=== PATIENT | female | born 2005 | race Caucasian/White ===

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

== ENCOUNTER 2024-06-14 15:12 | Emergency (ER) | payer OTHER, SELFPAY ==
[2024-06-14 15:26] VITALS: BP 110/61; PULSE 74; RESP 16; TEMP 36.4; O2SAT 100
--- NOTE | 2024-06-14 15:50 | ED.URI ---
HPI - URI/Sore Throat General Chief Complaint: Upper Respiratory Infection Stated Complaint: strep/flu exp tired ,sore throat Time Seen by Provider: 06/14/24 16:11 Source: patient and RN notes reviewed Mode of arrival: ambulatory Limitations: no limitations History of Present Illness HPI Narrative: 19-year-old female presents concern for 2 day history of nasal congestion, drainage, nausea, fatigue gout feeling lightheaded, sore throat, painful swallowing. Reports she was exposed to strep at home. MD elicited complaint: cough and sore throat Related Data Home Medications ?Medication ?Instructions ?Recorded ?Confirmed ?Last Taken ?Type levetiracetam 500 mg tablet mg PO 01/22/22 Unknown History norgestimate 0.25 mg-ethinyl tablet 01/22/22 Unknown History estradiol 35 mcg tablet (Estarylla) Allergies Allergy/AdvReac Type Severity Reaction Status Date / Time No Known Allergies Allergy Mild Verified 06/14/24 15:26 Review of Systems Review of Systems: CONSTITUTIONAL: Reports malaise, fatigue. Denies chills, sweats, or fever. EYES: Denies visual changes, redness, or discharge. ENT: Reports rhinorrhea, congestion, sore throat. Denies sinus pain, otalgia CARDIOVASCULAR: Denies chest pain, palpitations, or edema. RESPIRATORY: Denies cough. Denies dyspnea. GASTROINTESTINAL: Denies abdominal pain, vomiting, diarrhea. Reports nausea SKIN: Denies rash or itching. MUSCULOSKELETAL: Denies myalgia. NEUROLOGIC: Denies headache. All systems reviewed & are unremarkable except as noted in HPI and below PMFSH Past Medical History Medical History (Updated 06/14/24 @ 16:17 by Shae Ortiz NP) Nasal fracture Seizures Surgical History Surgical History (Updated 01/22/22 @ 09:34 by Scarlet Gifford NP) S/P nasal surgery Social History Social History (Updated 01/22/22 @ 09:34 by Scarlet Gifford NP) Smoking status: Never smoker Alcohol intake: never Substance use: never Living arrangements: with family Occupation/Education: student Gender identity (if verbalized by the patient): Female Comments At time of signature, agree with nursing past medical, surgical, social and family history. There is no relevant family history pertinent to the presenting complaint Exam Narrative: GENERAL: Well-appearing, well-nourished, and in no acute distress. HEAD: Normocephalic EYES: PERRLA, conjunctivae clear ENT: Nares clear. Mucous membranes moist. TM pearly multani with dull light reflex bilaterally; no tragal tenderness. Oropharynx erythematous without lesions. Tonsils not enlarged and without exudate, no drooling, no hoarseness, no trismus, uvula midline. NECK: Supple. No lymphadenopathy CHEST: Clear to auscultation, breath sounds equal. No wheezing, rhonchi, rales, or stridor. No respiratory distress, speaks in full sentences. HEART: Regular rate and rhythm. No murmur heard. SKIN: Warm, dry, no rash. NEURO: Alert and oriented x3. PSYCH: Normal mood and affect Course Course Emergency Course: Patient is aware of diagnosis, understands and agrees to treatment plan. Anticipatory guidance given. Patient agrees to follow-up as directed and is aware of reasons to seek care at the emergency department. Portions of this record may have been created with voice recognition software Level of Care: Express Care Visit Vital Signs Vital signs: Vital Signs Temperature 97.6 F 06/14/24 15:26 Pulse Rate 74 06/14/24 15:26 Respiratory Rate 16 06/14/24 15:26 Blood Pressure 110/61 06/14/24 15:26 Pulse Oximetry 100 06/14/24 15:26 Oxygen Delivery Room Air 06/14/24 15:26 Temperature 97.6 F 06/14/24 15:26 Pulse Rate 74 06/14/24 15:26 Respiratory Rate 16 06/14/24 15:26 Blood Pressure 110/61 06/14/24 15:26 Pulse Oximetry 100 06/14/24 15:26 Oxygen Delivery Room Air 06/14/24 15:26 Reviewed. MDM - URI/Sore Throat MDM Narrative Medical decision making narrative: Differential diagnosis considered: Lobo virus, strep pharyngitis, allergic rhinitis, upper respiratory tract infection, sinusitis, rhinosinusitis, nasopharyngitis. viral pharyngitis, otitis media, otitis externa, pneumonia, bronchitis, viral cough syndrome, viral syndrome, and influenza. Exam findings show no acute concerns or changes; patient is non-toxic appearing and is in no distress. Patient is appropriate for outpatient treatment and follow-up. Lab Data Attestation: I reviewed the patient's lab results. Critical Care Time Critical Care Time Critical Care Time: No Discharge Plan Discharge Clinical Impression: Sore throat, Exposure to strep throat Patient Disposition: Home, Self-Care Condition: Stable Instructions: Antibiotic Form, Strep Throat (ED) Additional Instructions: -Take the medication as prescribed. Throw away the toothbrush after 24hours of antibiotic. -Eat and drink things that are easy to swallow, like tea or soup, or popsicles to suck on. -Oral rinses such as: Salt water gargles and/or may use topical anesthetic (eg. Chloraseptic spray) or lozenges to relieve dryness or throat pain). -Take Tylenol and ibuprofen as needed for pain and fever as directed. -Frequent hand washing or hand managed services consultant is one of the best ways to prevent spread of infection. -Follow up with primary care provider in 2-3 days if condition is not improving; or seek ER visit if you have trouble breathing, cannot drink enough fluids, have muffled voice, difficulty opening your mouth, or severe swelling. Patient Language: Samoan Prescriptions: New penicillin V potassium 500 mg tablet 500 mg PO Q12H 10 Days Qty: 20 0RF No Action levetiracetam 500 mg tablet PO norgestimate-ethinyl estradiol [Estarylla] 0.25-35 mg-mcg tablet Follow-up/Referrals: Justus Carrero MD [Primary Care Provider] - Stand Alone Forms: Work/School Release IP Time of Disposition: 16:18
[2024-06-14 16:07] LABS: EDSTREPNEGPOS1 Negative (Negative)
[2024-06-14 16:10] LABS: EDCOVIDSCREEN Negative (Negative); EDINFLUASCREEN Negative (Negative); EDINFLUBSCREEN Negative (Negative); EDSTREPNEGPOS1 Negative (Negative)
== END 2024-06-14 16:25 | disposition home or self-care (01) ==
PROVIDERS: Emergency Provider Nurse Practitioner; PCP Pediatrics
DX: J02.9 Acute pharyngitis, unspecified (principal); Z20.822 Contact with and (suspected) exposure to COVID-19
CPT/HCPCS: 87081; 87426; 87804; 87880; 99213; G0463

== ENCOUNTER 2024-08-16 14:23 | Outpatient (CLI) | payer OTHER, SELFPAY ==
--- OUTSIDE RECORDS SUMMARY | 2024-08-16 16:00 | XMS_ITS | Referral Summary ---
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) 07/12/2024 Telephone [facility] Adolescent Medicine [facility] [address] [place] [address] [place] [id number] Tammy Schulte RN medication request 06/02/2024 3:00 PM CORPORATE INVESTIGATOR Office Visit [facility] Phys[facility] [address] [place] [address] Jamee Powers MD Encounter for contraceptive management, unspecified type from Last 3 Months Allergies No known active allergies Medications rimegepant (Nurtec ODT) tablet,disinteg ratingIndicatio ns:Migraine Take 1 tablet (75 mg total) by mouth as needed (Migraine) 8 tablet 3 4 Active Additional Information Patient not taking.Reported on 08/04/2024 segesterone ac-ethin estradioL 0.15-0.013 mg/24 hour ring Insert into vagina as directed 1 each 5 Active spironolactone (ALDACTONE) 50 mg tablet TAKE 1 TABLET(50 MG) BY MOUTH DAILY 90 tablet 5 Active levETIRAcetam XR (KEPPRA XR) 500 mg 24 hr tablet TAKE 2 TABLETS TWICE A DAY 120 tablet 5 Active Active Problems Problem Noted Date Diagnosed Date Allergic rhinitis due to pollen 11/19/2022 Closed anterior dislocation of right humerus Closed fracture of nasal bones 01/08/2022 Overview (01/08/2022): Added automatically from request for surgery [id number] 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 female with IBS p/w LLQ pain for 24h associated with 1 bloody stool 07/01. Weekly intermittent cramping pains self resolve with diarrhea at baseline. Last week one episode of black formed stool. Xray in the ED with gaseous distension and small bowel wall thickening. Her presentation could be consistent with IBS flare, IBD, PUD, celiacs, lower GI bleed, or upper GI bleed. IBD is less likely given family history and normal CRP. PUD is less likely given that food intake does not affect her pain and PUD is not typically associated with diarrhea. Celiac is less likely given her negative workup in the past and lack of weight loss. Upper GI bleed is possible if it were brisk but less likely given the absence of melena. Lower GI bleed is less likely given that only a single episode of bleeding was observed. Plan - CMP AM - mIVF, NPO 0200 - tylenol, benadryl, heat packs - stool cx and fecal calprotectin, infections studies if diarrhea - oral PPI tomorrow - CTE vs MR enterography to evaluate small bowel Migraine without aura and wi thout status migrainosus, not intractable 06/01/2021 Near syncope 06/01/2021 Closed fracture of distal phalanx of index finge r 07/11/2016 Notalgia 01/03/2015 Fracture of metacarpal bone 01/03/2015 Fracture of metatarsal bone 06/27/2014 Vomiting 06/11/2011 Left lower quadrant pain 06/11/2011 Social History Tobacco Use Types Packs/Day Years Used Date Smoking Tobacco: Never Smokeless Tobacco: Never Tobacco Cessation:Counseling Given: Not Answered AUDIT-C Answer Date Recorded Q1: How often do you have a drink containing alcohol? Never 08/04/2024 Q2: How many drinks containi ng alcohol do you have on a typical day when you are drinking? Patient does not drink Q3: How often do you have si x or more drinks on one occasion? Never 08/04/2024 Comments No Sex and Gender Information Value Date Recorded Sex Assigned at Not on file Legal Sex Female 9:23 AM CORPORATE INVESTIGATOR Gender Identity Not on file Sexual Orientation Not on file Last Filed Vital Signs Vital Sign Reading Time Taken Comments Blood Pressure 104/69 08/04/2024 3:56 PM CDT Pulse 69 08/04/2024 3:56 PM CDT Temperature 36.2 C (97.2 F) 06/02/2024 2:57 PM CORPORATE INVESTIGATOR Respiratory Rate 18 03/23/2023 12:5 5 PM CORPORATE INVESTIGATOR Oxygen Saturation 100% 06/02/2024 2:57 PM CORPORATE INVESTIGATOR Inhaled Oxygen Concentration - - Weight 53.9 kg (118 lb 13.3 oz) 08/04/2024 3:56 PM CDT Height 166 cm (5' 5.35 ) 08/04/2024 3:56 PM CDT Body Mass Index 19.56 08/04/2024 3:56 PM CDT Plan of Treatment Not on file Procedures Procedure Name Priority Date/Time Associated Diagnosis Comments POCT HCG, URINE Routine 06/02/2024 4:03 PM CORPORATE INVESTIGATOR Encounter for contraceptive management, unspecified type from Last 3 Months Results * POCT hCG, urine (06/02/2024 4:03 PM CORPORATE INVESTIGATOR) HCG, ur, POC Negative Negative Lot Number [id number] QC Backgroud Clear Acceptable QC Control Line Acceptable Urine 06/02/2024 4:03 PM CORPORATE INVESTIGATOR Jamee Powers MD POINT OF CARE TEST OR DERABLES Final Result from Last 3 Months Insurance [facility] Advance Directives For more information, please contact: [phone] * Full Code (Latest Code Status on File) Date Activated Date Inactivated Comments 07/02/2021 9:58 PM 07/04/2021 10:42 PM Care Teams Awake Overnight Monitor Relationship Specialty Start Date End Date Justus Carrero MD [address] [place] [address] PCP - General Pediatrics 02/22/18
--- OUTSIDE RECORDS SUMMARY | 2024-08-16 16:00 | XMS_ITS | Clinical Summary ---
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) 07/12/2024 Telephone [facility] Adolescent Medicine [facility] 2[address] [place] [address] [place] [address] Tammy Schulte RN medication request 06/02/2024 3:00 PM CLOTH WORKER Office Visit [facility] Pediatrics [address] [place] [address] [address] [place] [address] Jamee Powers MD Encounter for contraceptive management, unspecified type from Last 3 Months Surgical History Surgery Date Site/Laterality Comments UPPER GASTROINTESTINAL ENDOSCOPY 07/04/2021 COLONOSCOPY 07/04/2021 NASAL FRACTURE SURGERY N/A ARTHROSCOPY SHOULDER W/ OR W /O OPEN LABRAL REPAIR 11/08/2022 - 12/08/2022 Right Medical History Medical History Date Comments Finger fracture Foot fracture Arm fracture Migraines IBS (irritable bowel syndrome) Seizures (HCC) jerks -notices more when overly tired Nasal fracture 12/24/2021 IBS (irritable bowel syndrome) Family History Medical History Relation Name Comments Cancer Maternal Grandmother breast, uterine Migraines Maternal Grandmother Asthma Mother Asthma - (Added by TW Conv) Cancer Mother breast Irritable bowel syndrome Mother Irr itable Bowel Syndrome - (Added by TW Conv) Ulcers Mother Peptic Ulcer - (Added by TW Conv) Migraines Other Migraine Headac he - (Added by TW Conv) Epilepsy Sister Relation Name Status Comments Maternal Grandmother Mother Other Sister Social History Tobacco Use Types Packs/Day Years [...] on file Legal Sex Female 9:23 AM CLOTH WORKER Gender Identity Not on file Sexual Orientation Not on file History Length Weight Head Circum Date/Time Gestation Age D/C Weight APGARs Delivery Method Feeding 2004 No complications during the , delivery or period. Obstetrics History Last Filed Vital Signs Vital Sign Reading Time Taken Comments Blood Pressure 104/69 08/04/2024 3:56 PM CDT Pulse 69 08/04/2024 3:56 PM CDT Temperature 36.2 C (97.2 F) 06/02/2024 2:57 PM CLOTH WORKER Respiratory Rate 18 03/23/2023 12:5 5 PM CLOTH WORKER Oxygen Saturation 100% 06/02/2024 2:57 PM CLOTH WORKER Inhaled Oxygen Concentration - - Weight 53.9 kg (118 lb 13.3 oz) 08/04/2024 3:56 PM CDT Height 166 cm (5' 5.35 ) 08/04/2024 3:56 PM CDT Body Mass Index 19.56 08/04/2024 3:56 PM CDT Plan of Treatment Health Maintenance Due Date Last Done Comments Depression Screening 2004 Hepatitis C Screening 2004 Meningococcal B Vaccine (1 o f 2 - Standard) 2020 Regular Well Visit/Exam 18-64 2022 Pneumococcal vaccine <65 (1 of 2 - PCV) 2023 06/09/2005, 2004, 2004, Additional history exists DTaP/Tdap/Td Vaccine (7 - Td or Tdap) 01/01/2025 01/01/2015, 10/23/2009, 12/16/2005, Additional history exists Influenza Vaccine (Season Ended) 2025 03/25/2006, 04/22/2005, 03/21/2005 Hepatitis B Screening Completed 06/09/2005 , 2004, 2004 Varicella Vaccines Completed 10/23/2009, 06/09/2005 HPV Vaccines Completed 06/29/2017, 12/17/2016 Meningococcal Vaccine Completed 10/24/2020, 016 Procedures Procedure Name Priority Date/Time Associated Diagnosis Comments POCT HCG, URINE Routine 06/02/2024 4:03 PM CLOTH WORKER Encounter for contraceptive management, unspecified type from Last 3 Months Results * POCT hCG, urine (06/02/2024 4:03 PM CLOTH WORKER) HCG, ur, POC Negative Negative Lot Number [id number] QC Backgroud Clear Acceptable QC Control Line Acceptable Urine 06/02/2024 4:03 PM CLOTH WORKER Jamee Powers MD POINT OF CARE TEST OR DERABLES Final Result from Last 3 Months Insurance [facility] [employer] [facility] Address: [place] [address] [facility] [facility] Address: [place] [address] [facility] [facility] [employer] Address: [address] [place] [address] [facility] [employer] [facility]/PPO Address: [place] [address] [facility] [employer] [facility] [employer] Address: [address] [place] [address] [place] [address] Advance Directives For more information, please contact: [phone] * Full Code (Latest Code Status on File) Date Activated Date Inactivated Comments 07/02/2021 9:58 PM 07/04/2021 10:42 PM Care Teams Director Packaging Relationship Specialty Start Date End Date Justus Carrero MD [address] [place] [address] PCP - General Pediatrics 02/22/18
--- OUTSIDE RECORDS SUMMARY | 2024-08-16 16:00 | XMS_ITS | Clinical Summary ---
Author Organization [facility] Address [facility] [place] [address] Care Team Providers Care Dog Handler Name Role Phone Justus Carrero MD Primary Care Provider [phone] Allergies No known active allergies Medications levETIRAcetam ER (KEPPRA XR) 500 MG 24 hr tablet Take 2 tablets (1,000 mg total) by mouth 2 (two) times daily. 4 Active ANNOVERA 0.013-0.15 MG/24HR RING INSERT 1 RING VAGINALLY DIRECTED Active fluticasone propionate (FLONASE) 50 MCG/ACT nasal spray 1 spray by Each Nostril route daily as needed. 1 g 5 Active guaiFENesin ER (MUCINEX) 600 MG 12 hr tablet Take 1 tablet (600 mg total) by mouth 2 (two) times daily. 28 tablet 5 Active Encounters Date Type Department Care Team Description 06/25/2024 12:22 PM ANGLESMITH - 06/25/2024 2:10 PM ANGLESMITH Hospital Encounter [facility] [address] [place] [id number] Daniel Ray MD Sore Throat Discharge Disposition: Home or Self Care (Routine Discharge) 06/25/2024 Travel from Last 3 Months Social History Tobacco Use Types Packs/Day Years Used Date Smoking Tobacco: Never Smokeless Tobacco: Never Tobacco Cessation:Counseling Given: Not Answered Comments No Sex and Gender Information Value Date Recorded Sex Assigned at Female 06/25/2024 12:04 PM ANGLESMITH Legal Sex Female 12:03 PM ANGLESMITH Gender Identity Not on file Sexual Orientation Not on file Last Filed Vital Signs Vital Sign Reading Time Taken Comments Blood Pressure 107/65 06/25/2024 12:26 PM ANGLESMITH Pulse 84 06/25/2024 12:26 PM ANGLESMITH Temperature 36.7 C (98 F) 06/25/2024 12:26 PM ANGLESMITH Respiratory Rate 18 06/25/2024 12:26 PM ANGLESMITH Oxygen Saturation 98% 06/25/2024 12:26 PM ANGLESMITH Inhaled Oxygen Concentration - - Weight 54.4 kg (120 lb) 06/25/2024 12:26 PM ANGLESMITH Height 165.1 cm (5' 5 ) 06/25/2024 12:26 PM ANGLESMITH Body Mass Index 19.97 06/25/2024 12:26 PM ANGLESMITH Plan of Treatment Health Maintenance Due Date Last Done Comments Annual Physical 2007 Meningococcal B Vaccine (1 of 2 - Standard) 2020 Hepatitis C 2022 COVID-19 Vaccine ( season) 2024 DTaP, Tdap and Td Vaccines (7 - Td or Tdap) 01/01/2025 01/01/2015, 10/23/2009, 12/16/2005, Additional history exists Hepatitis B Vaccines Completed 06/09/2005, 2004, 2004 Pneumococcal Vaccine: Pediatrics (0 to 5 Years) and At-Risk Patients (6 to 64 Years) Aged Out 06/09/2005, 2004, 2004, Additional history exists No longer eligible based on patient's age to complete this topic HPV Vaccines Completed 06/29/2017, 12/17/2016 Meningococcal Vaccine Completed 10/24/2020, 016 RSV Immunizations Under 20 Months Aged Out No longer eligible based on patient's age to complete this topic Procedures Procedure Name Priority Date/Time Associated Diagnosis Comments STREP A RAPID STAT 06/25/2024 1:49 PM ANGLESMITH from Last 3 Months Results * STREP A RAPID (06/25/2024 1:49 PM ANGLESMITH) SPECIMEN TYPE THROAT 06/25/2024 1:[address] [facility] RAPID STREP TEST NEGATIVE NEGATIVE 06/25/2024 1:56 PM ANGLESMITH [facility] STRUCTURE OF ANTERIOR PORTION OF NECK / Unknown 06/25/2024 1:49 PM ANGLESMITH us Daniel Ray MD MICROBIOLOGY - GENERAL ORDER KATIE Final Result [facility] [address] [place] [address], from Last 3 Months Insurance Care Teams Dog Handler Relationship Specialty Start Date End Date Justus Carrero MD [address] [place] [address] PCP - General PEDIATRICS 06/25/24
--- OUTSIDE RECORDS SUMMARY | 2024-08-16 16:00 | XMS_ITS | Clinical Summary ---
Author Organization [facility] Address [address] [place] [address] Care Team Providers Care Mail Carriers Supervisor Name Role Phone Justus Carrero MD Primary Care Provider Source Comments [facility],non-owned Affiliates and Associated Physician Practices is amultiple site organization consisting of ambulatory clinics and hospital sitesin [place], [place], [place] and [place]. This disclosure is being madepursuant to the Care Everywhere program and may not contain all information available regarding this patient. Last updated 18.[facility] Tactile Allergies No known active allergies Medications * Be aware that medications may not be up to date on this document. Alwaysverify current medications with the patient. Medication Sig Dispensed Refills Start Date End Date Status levETIRAcetam CR 24hr (Keppra XR) 500 MG tablet 2 (two) tablets 2 times daily pt took at 0659, 11/25/22 10/31/2022 Active Estarylla 0.25-35 MG-MCG tablet Take 1 (one) tablet by mouth once daily 08/21/2021 Active nortriptyline (Pamelor) 10 MG capsule Take 1 (one) capsule by mouth at bedtime 10/31/2022 Active rimegepant (Nurtec) 75 MG tablet Take 75 mg by mouth as needed for Migraine 10/31/2022 Active Ubrelvy 100 MG tablet Take 1 (one) tablet by mouth once as needed for Migraine 10/25/2022 Active Other Take 1 Each by mouth once daily Migravent Gummy Active docusate sodium (Colace) 100 MG capsule Take 1 (one) capsule by mouth once daily 7 capsule 11/25/2022 Active Additional Information Patient not taking.Reported on 12/10/2022 HYDROcodone-acetami nophen ([place]) 5-325 MG tabletIndications:C losed anterior dislocation of right humerus, subsequent encounter,S/P arthroscopy of shoulder Take 1 (one) tablet to 2 (two) tablets by mouth every 4 hours as needed for Pain 20 tablet 11/25/2022 Active Additional Information Patient not taking.Reported on 12/10/2022 Active Problems Problem Noted Date Diagnosed Date Allergic rhinitis due to pollen 11/19/2022 11/19/2022 Closed anterior dislocation of right humerus Closed fracture of nasal bones 01/08/2022 0 11/19/2022 Overview (11/19/2022): Added automatically from request for surgery [id number] Juvenile myoclonic epilepsy 11/12/202111/08 IBS (irritable bowel syndrome) 07/03/2021 0 11/19/2022 Abdominal pain 07/03/2021 11/19/2022 Overview (11/19/2022): Last Assessment & Plan: Ioana Orr is a 16 y.o. female [...] wi thout status migrainosus, not intractable 06/01/2021 11/19/2022 Near syncope 06/01/2021 11/19/2022 Closed fracture of distal phalanx of index finge r 07/11/2016 11/19/2022 Fracture of metacarpal bone 01/03/201511/08 Notalgia 01/03/2015 11/19/2022 Fracture of metatarsal bone 06/27/201411/08 Left lower quadrant pain 06/11/2011 023 Vomiting 06/11/2011 11/19/2022 Immunizations Name Administration Dates Next Due DTAP, HISTORIC VACCINE 10/23/2009,2005,2004,10/22,2004 DTaP VACCINE IM (6wk-6yrs) 12/16/2005,,2004,08/16 HEP A PED/ADULT VACCINE 02/11/2007,06/08/2006 HEP A PEDS 2 DOSE 06/08/2006 HEP B VACCINE 06/09/2005,2004,2004 HEP B VACCINE, PED/ADOL 06/09/2005,2004, HIB BOOSTER 06/09/2005,2004,2004 HIB VACCINE 06/09/2005,2004,2004 Human Papilloma Virus Nineva lent Vaccine 06/29/2017,12/17/2016 INFLUENZA VACCINE 03/25/2006,04/22/2005,03/21/20 05 MENINGOCOCCAL ACWY (MCV4P) VAC IM 10/24/2020 MENINGOCOCCAL ACWY MENVEO 11/28/2015 MMR 06/09/2005 MMR VACCINE 10/23/2009,06/09/2005 PNEUMOCOCCAL CONJ, PEDS 06/09/2005,12/17,2004,08/16 PNEUMOCOCCAL PPV VACCINE 06/09/2005,0801/2005,2004,08/16 POLIO IPV 03/21/2005,2004,2004 POLIO,HISTORIC VACCINE 10/23/2009,2004,2004,08/16 TDAP, HISTORIC VACCINE 01/01/2015 VARICELLA 10/23/2009,06/09/2005,06/09/2005 Social History Tobacco Use Types Packs/Day Years Used Date Smoking Tobacco: Never Smokeless Tobacco: Never Tobacco Cessation:Counseling Given: Not Answered Alcohol Use Standard Drinks/Week Comments Never 0 (1 standard drink = 0.6 oz pur e alcohol) AUDIT-C Answer Date Recorded Q1: How often do you have a drink containing alcohol? Never 11/25/2022 Q2: How many drinks containi ng alcohol do you have on a typical day when you are drinking? Patient does not drink Q3: How often do you have si x or more drinks on one occasion? Never 11/25/2022 Sex and Gender Information Value Date Recorded Sex Assigned at Not on file Gender Identity Not on file Sexual Orientation Not on file Last Filed Vital Signs Vital Sign Reading Time Taken Comments Blood Pressure 102/67 11/25/2022 10:05 AM CDT Pulse 61 11/25/2022 10:05 AM CDT Temperature 36.2 C (97.1 F) 11/25/2022 10:05 AM CDT Respiratory Rate 8 11/25/2022 10:05 AM CDT Oxygen Saturation 96% 11/25/2022 10:10 AM CDT Inhaled Oxygen Concentration - - Weight 59.9 kg (132 lb) 12/10/2022 9:17 AM CDT Height 165.1 cm (5' 5 ) 11/25/2022 6:24 AM CDT Body Mass Index 21.97 11/25/2022 6:24 AM CDT Plan of Treatment Health Maintenance Due Date Last Done Comments HIV SCREENING 2019 CHLAMYDIA/GONORRHEA SCREENING 2020 MENINGOCOCCAL (Group B) VACC INE SHARED DECISION-MAKING (1 of 2 - Standard) 2020 HEPATITIS C SCREENING 06/03/2022 COVID-19 VACCINE ( - 2023-2 5 season) 2024 DEPRESSION SCREENING 05/11/2024 DTAP/TDAP/TD VACCINES (7 - T d or Tdap) 01/01/2025 01/01/2015, 10/23/2009, 12/16/2005, Additional history exists INFLUENZA VACCINE (Season Ended) 2025 03/25/2006, 04/22/2005, 03/21/2005 ZOSTER VACCINE (1 of 2) 2054 HEPATITIS B VACCINE Completed 06/09/2005, 06/09/2005, 2004, Additional history exists HIB VACCINE Completed 06/09/2005, 05/13, 2004, Additional history exists PNEUMOCOCCAL VACCINE Completed 06/09/2005, 06/09/2005, 2004, Additional history exists HPV VACCINE Completed 06/29/2017, 12/17/2016 MENINGOCOCCAL GROUPS A/C/Y/W VACCINE Completed 10/24/2020, 11/28/2015 Medical Devices Implanted Type Area Adhesive Bandage Making Operator Device Identifier Shelf Expiration Date Model / Serial / Lot Menno Sut Healix Transtend Othcrd 3.4mm Implanted:Qty: 1 on 11/25/2022 by Mohit Dorsey MD at [facility] Right: Shoulder [employer] 01/08/2025 [id number] / / [id number] Menno Sut Healix Transtend Othcrd 3.4mm Implanted:Qty: 1 on 11/25/2022 by Mohit Dorsey MD at [facility] Right: Shoulder [employer] 06/10/2025 [id number] / / [id number] Menno Sut Gryphon Proknot Bcrl Rapide Implanted:Qty: 1 on 11/25/2022 by Mohit Dorsey MD at [facility] Right: Shoulder [employer] 09/07/2024 [id number] / / [id number] Menno Sut Gryphon Proknot Bcrl Rapide Implanted:Qty: 1 on 11/25/2022 by Mohit Dorsey MD at [facility] Right: Shoulder [employer] 08/08/2025 [id number] / / [id number] Menno Sut Gryphon Proknot Bcrl Rapide Implanted:Qty: 1 on 11/25/2022 by Mohit Dorsey MD at [facility] Right: Shoulder [employer] 09/07/2024 [id number] / / [id number] Care Teams Mail Carriers Supervisor Relationship Specialty Start Date End Date Justus Carrero MD [address] [place] [address] PCP - General Pediatrics 11/25/22
[2024-08-16 18:56] LABS: Add Urine Microscopic? YES; Appearance Urine Turbid (Clear); Bacteria Urine 4+ /hpf; Bilirubin Urine Negative (Negative); Blood Urine 2+ (Negative); Color Urine Dark Yellow (Yellow); Glucose Urine UA Negative (Negative); Ketones Urine Negative (Negative); Leukocyte Esterase Ur 3+ LEU/UL (Negative); Mucus Urine Present /lpf; Need Manual Microscopic Reviewed; Nitrate Urine Positive (Negative); Protein Urine 2+ mg/dL (Negative); Specific Grav Ur 1.021 (1.001-1.035); Squamous Epithelial Cell Urine None Seen /hpf (Few); WBC Urine >100 /hpf (0-3); pH Urine 6.5 (5.0-9.0)
[2024-08-16 19:06] LABS: Basophils Absolute Auto 0.1 K/mm3 (0.0-0.1); Basophils Percent Auto 0.6 % (0.2-1.2); Eosinophils Absolute Auto 0.1 K/mm3 (0-0.3); Eosinophils Percent Auto 0.9 % (0-4.4); Hematocrit 36.1 % (37.0-47.0); Hemoglobin 12.1 g/dL (12.0-15.0); Immature Granulocyte Absolute 0.02 K/mm3 (0.00-0.031); Immature Granulocyte Percent A 0.3 % (0-0.5); Lymphocytes Absolute Auto 2.92 K/mm3 (0.9-3.2); Lymphocytes Percent Auto 36.6 % (18.3-44.2); Mean Corpuscular HGB Conc 33.5 g/dl (32-36); Mean Corpuscular Volume 89.4 fl (80-100); Mean Platelet Volume 10.9 fl (7.4-10.4); Monocytes Absolute Auto 0.6 K/mm3 (0.1-0.6); Monocytes Percent Auto 7.3 % (2.6-8.5); Neutrophils Absolute Auto 4.3 K/mm3 (1.3-6.7); Neutrophils Percent Auto 54.3 % (45.5-73.1); Platelet Count Result 282 k/mm3 (150-375); Red Blood Count 4.04 M/mm3 (4.2-5.4); Red Cell Distribution Width 11.5 % (11.5-14.5)
[2024-08-16 20:12] LABS: Alanine Aminotransferase 17 U/L (6-35); Albumin Level 4.6 g/dL (3.5-5.1); Alkaline Phosphatase 63 U/L (38-126); Anion Gap 12 mmol/L (4-12); Aspartate Amino Transferase 62 U/L (14-36); Bilirubin,Total 0.3 mg/dL (0.2-1.3); Blood Urea Nitrogen 11 mg/dL (7-17); Calcium 9.3 mg/dL (8.4-10.2); Carbon Dioxide 24 mmol/L (22-30); Chloride 104 mmol/L (98-107); Estimated Glomerular Filt Rate > 60; Glucose 99 mg/dL (65-110); Potassium 4.1 mmol/L (3.4-5.0); Sodium 140 mmol/L (137-145)
[2024-08-16 21:06] LABS: Free T4 Free Thyroxine 0.86 ng/dL (0.78-2.19)
[2024-08-18 15:33] LABS: Immunoglobulin A 133 mg/dL (47-310); TTG IGA AB <1.0 U/mL
== END 2024-08-16 14:24 | disposition home or self-care (01) ==
PROVIDERS: PCP Nurse Practitioner Adult Health; Visit Provider Nurse Practitioner Adult Health
DX: R39.9 Unspecified symptoms and signs involving the genitourinary system (principal); K58.9 Irritable bowel syndrome, unspecified; F41.9 Anxiety disorder, unspecified; Z13.9 Encounter for screening, unspecified
CPT/HCPCS: 36415; 80053; 81001; 82784; 83516; 84439; 84443; 85025; 86003; 87086; 87186